=== PATIENT | male | born 1975 | race Hispanic/Latino ===

== ENCOUNTER 2016-12-17 18:51 | Emergency (ER) | payer OTHER ==
[2016-12-17 19:15] VITALS: BP 108/74
[2016-12-17 19:54] LABS: Basophils % (Auto) 0.5 % (0.0-1.8); Eosinophils % (Auto) 0.9 % (0.0-4.3); Hematocrit 41.5 % (35.5-45.6); Hemoglobin 13.6 gm/dl (11.8-15.2); Mean Corpuscular HGB Conc 33 % (32-34); Mean Corpuscular Hemoglobin 29 pg (28-32); Mean Corpuscular Volume 89 fl (84-94); Platelet Count 153 K/mm3 (140-440); Red Blood Count 4.65 M/mm3 (3.65-5.03); White Blood Count 7.9 K/mm3 (4.5-11.0)
[2016-12-17 20:02] LABS: Anion Gap 14 mmol/L; Blood Urea Nitrogen 13 mg/dL (9-20); Calcium 9.3 mg/dL (8.4-10.2); Carbon Dioxide 28 mmol/L (22-30); Chloride 95.3 mmol/L (98-107); Glucose 88 mg/dL (75-100); Sodium 133 mmol/L (137-145)
[2016-12-17 20:42] LABS: Bilirubin,Urine NEG (Negative); Blood,Urine NEG (Negative); Ketones,Urine NEG (Negative); Leukocyte Esterase,Urine NEG (Negative); Mucus,Urine 1+ /HPF; Nitrite,Urine NEG (Negative); Protein,Urine <15 mg/dL mg/dL (Negative); Urobilinogen,Urine < 2.0 mg/dL (<2.0)
== END 2016-12-18 00:30 | disposition left against medical advice (07) ==
LOC: ED 18:51
DX: R07.9 Chest pain, unspecified (principal); Z53.21 Procedure and treatment not carried out due to patient leaving prior to being seen by health care provider
CPT/HCPCS: 36415; 80048; 81001; 82962; 83735; 84484; 85025; 93005; 93010